=== PATIENT | male | born 1955 | race Caucasian/White ===

== ENCOUNTER 2024-08-30 00:46 | Emergency (ER) | payer OTHER, SELFPAY ==
--- NOTE | ~2024-08-30 | CT_ITS ---
CT of the Abdomen and Pelvis: Indication: Abdominal pain Technique: 2.5 mm axial scans were obtained through the abdomen and pelvis following intravenous adm inistration of 100 cc of Omnipaque 350. Dose reduction technique was used on this scan by utilizing a utomated exposure control and iterative reconstruction technique. The dose-length product (DLP) was 9 57.97 mGy-cm. Findings: Scans through the lung bases demonstrate 9-10 mm right lower lobe pulmonary nodule (axial image 23). There is partially imaged anterior mediastinal versus AP window mass or lymphadenopathy, w ith visualized portion measuring 6.1 x 3.0 cm. Partially imaged probable enlarged precarinal lymph no de measuring at least 1.9 cm in short axis. There are enlarged inferior pericardial lymph nodes, larg est measuring 2.4 cm in diameter (axial images 35-40).. The liver, spleen, gallbladder, and right adrenal gland, and right kidney are within normal limits. 6 mm nonobstructing left renal stone present. 2.9 cm right adrenal nodule is indeterminate. Pancreas p robably unremarkable. No evidence of aortic aneurysm. No lymphadenopathy. There is a large, lobulated, somewhat heterogeneous mass centered in the central mesentery, measuring up to approximately 20.0 x 9.6 x 15.9 cm in overall extent. There is encasement of central mesenteri c vasculature, the lesion extensively abuts the pancreatic head/uncinate process as well as the duode num. There are several much smaller satellite mesenteric masses/implants versus nodes. No bowel obstr uction or bowel wall thickening. There is no evidence to suggest acute appendicitis. Images through the pelvis were performed. Urinary bladder unremarkable. Prostate gland is minimally e nlarged. No ascites. Impression: Dominant 20.0 x 9.6 x 15.9 cm lobulated somewhat heterogeneous mass centered in the central mesentery , extensively abutting the duodenum and pancreatic head. This is compatible with neoplasm, precise et iology unclear. GIST is a potential consideration. Tissue sampling recommended to establish histologi c diagnosis. Several much smaller satellite lesions with dominant mass or compatible with metastatic implants or n odes. 2.9 cm indeterminate right adrenal nodule. Metastasis is a consideration. Partially imaged mediastinal lymphadenopathy, as detailed above, as well as 9-10 mm right lower lobe pulmonary nodule and inferior pericardial lymphadenopathy, all of which are also suspicious for metas tatic disease. Dedicated chest CT recommended to more completely evaluate disease burden in the chest . Reviewed, dictated and finalized at location [facility] [employer] Impression: Dominant 20.0 x 9.6 x 15.9 cm lobulated somewhat heterogeneous mass centered in the central mesentery, extensively abutting the duodenum and pancreatic head. This is compatible with neoplasm, precise etiology unclear. GIST is a potential consideration. Tissue sampling recommended to establish histologic diagnosis. Several much smaller satellite lesions with dominant mass or compatible with me tastatic implants or nodes. 2.9 cm indeterminate right adrenal nodule. Metastasis is a consideration. Partially imaged mediastinal lymphadenopathy, as detailed above, as well as 9-1 0 mm right lower lobe pulmonary nodule and inferior pericardial lymphadenopathy , all of which are also suspicious for metastatic disease. Dedicated chest CT r ecommended to more completely evaluate disease burden in the chest.
[2024-08-30 00:49] VITALS: BP 186/83; PULSE 69; RESP 17; TEMP 36.4; O2SAT 99
--- OUTSIDE RECORDS SUMMARY | 2024-08-30 00:49 | XMS_ITS | CONTINUITY OF CARE DOCUMENT ---
Author Name curtis acevedo Address Unknown Organization [facility] Address [address] [place] [address] Phone [phone] Care Team Providers Care Housekeeper Name Role Phone Chuy Dhillon MD Unavailable AMBER SERRA Unavailable AMBER SERRA Unavailable PROBLEMS Condition Status Date Provider Notes Cardiovascular screening active Chuy lugo MD Diabetes mellitus type II active Chuy acosta MD HTN essential active Chuy Dhillon MD Anxiety active Chuy Dhillon MD Obesity active Chuy Dhillon MD Foot pain active Chuy Dhillon MD Frequent PVC active Chuy Dhillon MD ENCOUNTERS Date Type Provider Location Encounter Diag nosis - In-person encounter Office Visit Chuy Dhillon MD [place] [facility] Cardiovascular screeningDiabetes mellitus type IIHTN essentialAnxietyObesityFoot painFrequent PVC VITAL SIGNS Date Observation Value Provider Body Mass Index (Ratio) 37.79 kg/m2 Barbara Dhillon MD blood pressure, resting Yes Sea Gil blood pressure, cuff size regular Kr jerry Gil blood pressure, diastolic 80 mm[Hg] Jose Gil blood pressure, systolic 150 mm[Hg] Emmanuel Gil oxygen saturation, oximetry 96 % Jaelyn Spicerby pulse rate 81 /min Jaelyn Spicerby respiratory rate E&M 18 /min Jaelyn Spicerby height E&M 71 [in_i] Jaelyn Spicerby weight E&M 271 [lb_av] Jaelyn Jeffery HISTORY OF MEDICATION USE Medication Status Instructions Dates Provider Indications Com ments CALCIUM-MAGNESIU M-ZINC TABLET active take one tablet by mouth once daily 6 Jaelyn Gil CENTRUM SILVER 50+WOMEN ORAL TABLET active once weekly 6 Jaelyn Gil VITAMIN D3 1.25 MG (73033 UT) ORAL TABLET active take one tablet by mouth once weekly 6 Jaelyn Gil CO-Q 10 OMEGA-3 FISH OIL ORAL CAPSULE active take one tablet by mouth once daily 6 Jaelyn Gil JANUVIA 100 MG ORAL TABLET active take one tablet by mouth once daily 6 Jaelyn Gil LISINOPRIL-HYDRO CHLOROTHIAZIDE 20-25 MG ORAL TABLET active take one tablet by mouth once daily 8 Jaelyn Gil #30, 30 days supply, Prescribed by AMBER OGDEN, Filled 09/17/2020 METFORMIN HCL 500 MG ORAL TABLET active take one tablet by mouth twice daily 8 Jaelyn Gil #60, 30 days supply, Prescribed by AMBER OGDEN, Filled 10/04/2020 ESCITALOPRAM OXALATE 20 MG ORAL TABLET active take one tablet by mouth once daily 8 Jaelyn Gil #30, 30 days supply, Prescribed by AMBER OGDEN, Filled 10/04/2020 SOCIAL HISTORY Date Observation Value Provider number of grandchildren Chuy Dhillon MD U marcelle Dhillon MD social history E&M S moking History: Malena rousseau is a former smoker. Chuy Dhillon MD social history reviewed E&M reviewed - no changes required Chuy Dhillon MD cigarette use yes Jaelyn Gil smoking status Former smoker Jaelyn Spicreby INSURANCE PROVIDERS Payer name Policy type / Coverage type [employer] [facility] Medicaid 0 [id number] [place] [employer] Medicare [id number] TREATMENT PLAN Date Name Performer Cardiology Chuy Dhillon MD Cardiology:Per PCP Chuy Dhillon MD Cardiology:Due to HT N, DM, obesity, abnormal EKG we will check an echo BP today: 150/80 Chuy Dhillon MD Cardiology:Will refe r to Dr. Roberts. The patient has palpable pedal pulses and is without discoloration, swelling or pain on exertion. Most of his issue may be related to poor support in his arch, he has very flat feet. Advised that he may consider getting arch supports. We will check an venous US to r/o venous insufficiency. Chuy Dhillon MD Date Name Venous Doppler Bilat eral LE - Reflux Complete Echo HISTORY OF PROCEDURES Procedure Date Procedure Name Provider Procedure Notes S tatus Holter, 24 or 48 Chuy Dhillon MD com pleted EKG Chuy Dhillon MD completed
[2024-08-30 01:18] LABS: Basophils Absolute Auto 0.1 K/mm3 (0.0-0.1); Basophils Percent Auto 0.4 % (0.2-1.2); Eosinophils Absolute Auto 0.1 K/mm3 (0-0.3); Eosinophils Percent Auto 0.9 % (0-4.4); Hematocrit 40.6 % (42.0-52.0); Hemoglobin 13.4 g/dL (14.0-18.0); Immature Granulocyte Absolute 0.08 K/mm3 (0.00-0.031); Immature Granulocyte Percent A 0.5 % (0-0.5); Lymphocytes Absolute Auto 1.51 K/mm3 (0.9-3.2); Lymphocytes Percent Auto 10.3 % (18.3-44.2); Mean Corpuscular Hemoglobin 26.8 pg (26-34); Mean Corpuscular Volume 81.2 fl (80-100); Mean Platelet Volume 9.1 fl (7.4-10.4); Monocytes Absolute Auto 0.9 K/mm3 (0.1-0.6); Monocytes Percent Auto 6.4 % (2.6-8.5); Neutrophils Percent Auto 81.5 % (45.5-73.1); Platelet Count Result 388 k/mm3 (150-375); Red Cell Distribution Width 13.9 % (11.5-14.5); White Blood Count 14.7 K/mm3 (4.5-10.0)
[2024-08-30] MEDS: ONDANSETRON INJ 4 MG/2 ML VIAL IV PUSH ×2 (01:25→03:28)
[2024-08-30 01:42] LABS: Alanine Aminotransferase 18 U/L (6-50); Alkaline Phosphatase 146 U/L (38-126); Anion Gap 12 mmol/L (4-12); Aspartate Amino Transferase 32 U/L (17-59); Bilirubin,Total 0.7 mg/dL (0.2-1.3); Blood Urea Nitrogen 23 mg/dL (9-20); Calcium 10.3 mg/dL (8.4-10.2); Carbon Dioxide 25 mmol/L (22-30); Chloride 100 mmol/L (98-107); Estimated CRCL calculation 77 ml/min; Estimated Glomerular Filt Rate > 60; Glucose 242 mg/dL (65-110); Lipase 376 U/L (23-300); Potassium 3.5 mmol/L (3.4-5.0); Sodium 137 mmol/L (137-145)
[2024-08-30 01:54] LABS: Influenza A QL RT-PCR Negative (Negative); Influenza B QL RT-PCR Negative (Negative); RSV RNA, RT-PCR Negative (Negative); SARS-CoV-2 RNA PCR Negative (Negative)
--- OUTSIDE RECORDS SUMMARY | 2024-08-30 03:04 | XMS_ITS | Data Portability ---
Author Organization [facility] LISA Brenda [facility] Address [address] [place] [address] Assessment Encounter Date Assessment Date Assessment LastModified by Organization Details LastModified Time 04/27/2024 04/27/2024 Again deferred colon cancer screening [email or web address] Not available 04/27/2024 10:57:47 Plan of Treatment Reminders Order Date Submit Date Provider Last Modified By Organization Details Last Modified Time Details Appointments ANY 2024 09:00A M Karina Herrera MD Not available Not available Not available Lab CBC w/ auto diff 2023 024 [facility], [address] [place] [address], [facility] [address], [place], [address], 04/28/2024 13:14:15 urinalysi s, dipstick, reflex micro 2023 024 [facility], [address] [place] [address], [facility] [address], [place], [address], 04/28/2024 13:14:14 albumin/c reatinine , mass ratio, urine 2023 024 [facility], [address] [place] [address], [facility] [address], [place], [address], 04/28/2024 13:14:11 Referral None recorded. Procedures None recorded. Surgeries None recorded. Imaging None recorded. Medication Orders chlorthal idone 25 mg tablet 2024 025 [facility], [address] [place] [address], [id number], 07/15/2024 10:28:09 amlodipin e 10 mg tablet 2024 025 [facility], [address] [place] [address], [id number], 08/02/2024 09:27:40 lisinopri l 20 mg tablet 2024 025 [facility], [address] [place] [address], [id number], 08/19/2024 10:14:59 Farxiga 5 mg tablet 2023 024 [id number], [address] [place] [address], [id number], 05/01/2024 12:55:50 amlodipin e 10 mg tablet 2023 024 [facility], [address] [place] [address], [id number], 08/02/2024 08:49:03 lisinopri l 20 mg tablet 2023 024 [facility], [address] [place] [address], [id number], 04/27/2024 11:47:57 metformin 500 mg tablet 2023 024 [facility], [address] [place] [address], [id number], 06/08/2024 10:01:36 amlodipin e 5 mg tablet 2023 025 [facility], [address] [place] [address], [id number], 07/14/2024 11:49:19 Patient TargetsNo targets recorded. Patient InstructionsNo instructions recorded. Reason for Referral None Reported. Results Created Date Observation Date Name Description Value Unit Range Abnormal Flag Note LastModifiedBy Organization Detail LastModifiedTime 03/01/20 24 03/02/2024 ALBUM IN/CR EATIN INE RATIO ,URIN E creatinine, urine 102.1 mg/dL notest ab. Not Available [facility] ([facility]) [address] [facility], [place], [address], 03/02/2024 08:25:14 03/01/20 24 03/02/2024 ALBUM IN/CR EATIN INE RATIO ,URIN E albumin, urine 214.2 ug/mL notest ab. Not Available [facility] ([facility]) [address] [facility], [place], [address], 03/02/2024 08:25:14 03/01/20 24 03/02/2024 ALBUM IN/CR EATIN INE RATIO ,URIN E alb/creat ratio 210 mg/g_ creat 0-29 above high normal Farideh l: 0 - 29 Moder ately incre ased: 30 - 300 Sever ophelia incre ased: >300 Not Available [facility] ([facility]) [address] [facility], [place], [address], 03/02/2024 08:25:14 03/01/20 24 03/01/2024 HbA1c (hemo globi n A1c), blood HbA1c 7.5 Not Available In-Office Order Internal Use Only DO Not Attach Compendium DO Not Attach Compendium, Do Not Delete/merge, [id number] 03/01/2024 12:31:19 04/27/20 24 04/28/2024 ALBUM IN/CR EATIN INE RATIO ,URIN E creatinine, urine 91.0 mg/dL notest ab. Not Available [facility] ([facility]) [address] [place], [address], 04/28/2024 13:14:11 04/27/20 24 04/28/2024 ALBUM IN/CR EATIN INE RATIO ,URIN E albumin, urine 187.0 ug/mL notest ab. Not Available [facility] ([facility]) [address] [place], [address], 04/28/2024 13:14:11 04/27/20 24 04/28/2024 ALBUM IN/CR EATIN INE RATIO ,URIN E alb/creat ratio 205 mg/g_ creat 0-29 above high normal Farideh l: 0 - 29 Moder ately incre ased: 30 - 300 Sever ophelia incre ased: >300 Not Available [facility] ([facility]) [address], [place], [address], 04/28/2024 13:14:11 04/27/20 24 04/28/2024 MICRO SCOPI C EXAMI NATIO N WBC None seen /hpf 0-5 Not Available [facility] ([facility]) [address] [facility], [place], [address], 04/28/2024 13:14:13 04/27/2004/28/2024 MICRO SCOPI C EXAMI NATIO N RBC 0-2 /hpf 0-2 Not Available [facility] ([facility]) [address] [facility], [place], [address], 04/28/2024 13:14:13 04/27/2004/28/2024 MICRO SCOPI C EXAMI NATIO N epithelial cells (non renal) None seen /hpf 0-10 Not Available [facility] ([facility]) [address] [facility], [place], [address], 04/28/2024 13:14:13 04/27/2004/28/2024 MICRO SCOPI C EXAMI NATIO N casts None seen /lpf nonese en Not Available [facility] ([facility]) [address] [facility], [place], [address], 04/28/2024 13:14:13 04/27/20 24 04/28/2024 MICRO SCOPI C EXAMI NATIO N bacteria None seen nonese en/few Not Available [facility] ([facility]) [address] [facility], [place], [address], 04/28/2024 13:14:13 04/27/2004/28/2024 URINA LYSIS , ROUTI NE W/RFX specific gravity 1.019 1.005- 1.030 Not Available [facility] ([facility]) [address] [facility], [place], [address], 04/28/2024 13:14:13 04/27/2004/28/2024 URINA LYSIS , ROUTI NE W/RFX pH 6.0 5.0-7. 5 Not Available [facility] ([facility]) [address] [facility], [place], [address], 04/28/2024 13:14:13 04/27/2004/28/2024 URINA LYSIS , ROUTI NE W/RFX urine-color YELLOW yellow Not Available [facility] ([facility]) [address] [facility], [place], [address], 04/28/2024 13:14:13 04/27/2004/28/2024 URINA LYSIS , ROUTI NE W/RFX appearance CLEAR clear Not Available [facility] ([facility]) [address] [facility], [place], [address], 04/28/2024 13:14:13 04/27/2004/28/2024 URINA LYSIS , ROUTI NE W/RFX WBC esterase NEGATI VE negati ve Not Available [facility] ([facility]) [address] [facility], [place], [address], 04/28/2024 13:14:13 04/27/2004/28/2024 URINA LYSIS , ROUTI NE W/RFX protein 1+ negati ve/tra ce abnormal Not Available [facility] ([facility]) [address] [facility], [place], [address], 04/28/2024 13:14:13 04/27/2004/28/2024 URINA LYSIS , ROUTI NE W/RFX glucose TRACE negati ve abnormal Not Available [facility] ([facility]) [address] [facility], [place], [address], 04/28/2024 13:14:13 04/27/2004/28/2024 URINA LYSIS , ROUTI NE W/RFX ketones NEGATI VE negati ve Not Available [facility] ([facility]) [address] [facility], [place], [address], 04/28/2024 13:14:13 04/27/2004/28/2024 URINA LYSIS , ROUTI NE W/RFX occult blood NEGATI VE negati ve Not Available [facility] ([facility]) [address] [facility], [place], [address], 04/28/2024 13:14:13 04/27/2004/28/2024 URINA LYSIS , ROUTI NE W/RFX bilirubin NEGATI VE negati ve Not Available [facility] ([facility]) [address] [place], [address], 04/28/2024 13:14:13 04/27/2004/28/2024 URINA LYSIS , ROUTI NE W/RFX urobilinogen ,semi-qn 0.2 mg/dL 0.2-1. 0 Not Available [facility] ([facility]) [address] [place], [address], 04/28/2024 13:14:13 04/27/2004/28/2024 URINA LYSIS , ROUTI NE W/RFX nitrite, urine NEGATI VE negati ve Not Available [facility] ([facility]) [address] [place], [address], 04/28/2024 13:14:13 04/27/2004/28/2024 URINA LYSIS , ROUTI NE W/RFX microscopic examination SEE BELOW: Micro scopi c was indic ated and was perfo rmed. Not Available [facility] ([facility]) [address] [facility], [place], [address], 04/28/2024 13:14:13 04/27/20 24 04/27/2024 CBC WITH DIFFE RENTI AL/PL ATELE T WBC 9.8 x10e3 /uL 3.4-10 .8 Not Available [facility] ([facility]) [address] [facility], [place], [address], 04/28/2024 13:14:15 04/27/20 24 04/27/2024 CBC WITH DIFFE RENTI AL/PL ATELE T RBC 5.08 x10e6 /uL 4.14-5 .80 Not Available [facility] ([facility]) [address] [facility], [place], [address], 04/28/2024 13:14:15 04/27/2004/27/2024 CBC WITH DIFFE RENTI AL/PL ATELE T hemoglobin 13.6 g/dL 13.0-1 7.7 Not Available [facility] ([facility]) [address] [facility], [place], [address], 04/28/2024 13:14:15 04/27/20 24 04/27/2024 CBC WITH DIFFE RENTI AL/PL ATELE T hematocrit 42.6 % 37.5-5 1.0 Not Available [facility] ([facility]) [address] [facility], [place], [address], 04/28/2024 13:14:15 04/27/20 24 04/27/2024 CBC WITH DIFFE RENTI AL/PL ATELE T MCV 84 fL 79-97 Not Available [facility] ([facility]) [address] [facility], [place], [address], 04/28/2024 13:14:15 04/27/20 24 04/27/2024 CBC WITH DIFFE RENTI AL/PL ATELE T MCH 26.8 pg 26.6-3 3.0 Not Available [facility] ([facility]) [address] [facility], [place], [address], 04/28/2024 13:14:15 04/27/20 24 04/27/2024 CBC WITH DIFFE RENTI AL/PL ATELE T MCHC 31.9 g/dL 31.5-3 5.7 Not Available [facility] ([facility]) [address] [facility], [place], [address], 04/28/2024 13:14:15 04/27/20 24 04/27/2024 CBC WITH DIFFE RENTI AL/PL ATELE T RDW 13.1 % 11.6-1 5.4 Not Available [facility] ([facility]) [address] [facility], [place], [address], 04/28/2024 13:14:15 04/27/20 24 04/27/2024 CBC WITH DIFFE RENTI AL/PL ATELE T platelets 385 x10e3 /uL 150-45 0 Not Available [facility] ([facility]) [address] [facility], [place], [address], 04/28/2024 13:14:15 04/27/20 24 04/27/2024 CBC WITH DIFFE RENTI AL/PL ATELE T neutrophils 75 % notest ab. Not Available [facility] ([facility]) [address] [facility], [place], [address], 04/28/2024 13:14:15 04/27/20 24 04/27/2024 CBC WITH DIFFE RENTI AL/PL ATELE T lymphs 11 % notest ab. Not Available [facility] ([facility]) [address] [place], [address], 04/28/2024 13:14:15 04/27/20 24 04/27/2024 CBC WITH DIFFE RENTI AL/PL ATELE T monocytes 11 % notest ab. Not Available [facility] ([facility]) [address] [facility], [place], [address], 04/28/2024 13:14:15 04/27/20 24 04/27/2024 CBC WITH DIFFE RENTI AL/PL ATELE T eos 2 % notest ab. Not Available [facility] ([facility]) [address] [facility], [place], [address], 04/28/2024 13:14:15 04/27/20 24 04/27/2024 CBC WITH DIFFE RENTI AL/PL ATELE T basos 1 % notest ab. Not Available [facility] ([facility]) [address] [facility], [place], [address], 04/28/2024 13:14:15 04/27/20 24 04/27/2024 CBC WITH DIFFE RENTI AL/PL ATELE T neutrophils (absolute) 7.4 x10e3 /uL 1.4-7. 0 above high normal Not Available [facility] ([facility]) [address] [facility], [place], [address], 04/28/2024 13:14:15 04/27/20 24 04/27/2024 CBC WITH DIFFE RENTI AL/PL ATELE T lymphs (absolute) 1.1 x10e3 /uL 0.7-3. 1 Not Available [facility] ([facility]) [address] [facility], [place], [address], 04/28/2024 13:14:15 04/27/20 24 04/27/2024 CBC WITH DIFFE RENTI AL/PL ATELE T monocytes(ab solute) 1.0 x10e3 /uL 0.1-0. 9 above high normal Not Available [facility] ([facility]) [address] [facility], [place], [address], 04/28/2024 13:14:15 04/27/20 24 04/27/2024 CBC WITH DIFFE RENTI AL/PL ATELE T eos (absolute) 0.2 x10e3 /uL 0.0-0. 4 Not Available [facility] ([facility]) [address] [facility], [place], [address], 04/28/2024 13:14:15 04/27/20 24 04/27/2024 CBC WITH DIFFE RENTI AL/PL ATELE T baso (absolute) 0.1 x10e3 /uL 0.0-0. 2 Not Available [facility] ([facility]) [address] [facility], [place], [address], 04/28/2024 13:14:15 04/27/20 24 04/27/2024 CBC WITH DIFFE RENTI AL/PL ATELE T immature granulocytes 0 % notest ab. Not Available [facility] ([facility]) [address] [facility], [place], [address], 04/28/2024 13:14:15 04/27/20 24 04/27/2024 CBC WITH DIFFE RENTI AL/PL ATELE T immature grans (abs) 0.0 x10e3 /uL 0.0-0. 1 Not Available [facility] ([facility]) [address] [facility], [place], [address], 04/28/2024 13:14:15 Result Notes None recorded. Problems Name Problem SNOMED Code Status Onset Date Resolution Date Notes Provider Name and Address Organization Details Recorded Time Bilateral hearing loss 74621706 Active 2017 45% on left ; 65 % hearing on the right Mannie Hope PA-C Attn: Kyle fuller,[address] [facility], [place], [address], [facility] 8 11:03:42 Fatigue 48229602 Active 2017 Manine Hope PA-C Attn: Kyle fuller,[address] [facility], [place], [address], [facility] 8 11:04:10 Testostero ne level below reference range 195228712 Active 2017 Mannie Hope PA-C Attn: Accountnura g,[address] [facility], [place], [address], [place] [facility] 8 09:49:40 Essential hypertensi on 87714676 Active 2017 Mannie Hope PA-C Attn: Kyle g,[address] [facility], [place], [address], [place] [facility] 8 10:36:56 Type 2 diabetes mellitus 63420271 Active 2017 Mannie Hope PA-C Attn: Accountnura g,[address] [facility], [place], [address], [place] [facility] 8 23:39:36 Herpes zoster 6033053 Active 2018 Mannie Hope PA-C Attn: Accountnura fuller,[address] [facility], [place], [address], [place] [facility] 9 16:48:39 Depressive disorder 47646966 Active 2019 Mannie Hope PA-C Attn: Accountnura g,[address] [facility], [place], [address], [place] [facility] 0 09:23:53 Prostate specific antigen outside reference range 012177884 Active 2019 Mannie Hope PA-C Attn: Accountnura g,[address] [facility], [place], [address], [place] [facility] 0 14:15:26 Vitamin D below reference range 837022204 Active 2019 Mannie Hope PA-C Attn: Accountin g,[address] [facility], [place], [address], [place] [facility] 0 14:22:40 Venous stasis 23384226 Active 2020 Mannie Hope PA-C Attn: Accountnura g,[address] [facility], [place], [address], [place] [facility] 1 10:25:22 Screening for malignant neoplasm of colon Active 2020 Mannie Hope PA-C Attn: Accountin g,[address] [facility], [place], [address], [place] [facility] 1 10:19:58 Left side sciatica [id number] 104 Active 2021 Mannie Hope PA-C Attn: Accountin g,[address] [facility], [place], [address], [place] [facility] 2 15:50:42 HIV screening Active 2021 Mannie Hope PA-C Attn: Accountin g,[address] [facility], [place], [address], [place] [facility] 2 12:13:13 Pain of left knee joint 872665848331 107 Active 2021 Mannie Hope PA-C Attn: Accountin g,[address] [facility], [place], [address], [place] [facility] 2 12:12:07 Otitis media 22417887 Active Mannie Hope PA-C Attn: Accountin g,[address] [facility], [place], [address], [place] [facility] 4 10:19:59 Hypertensi ve disorder 92973522 Active Mannie Hope PA-C Attn: Accountin g,[address] [facility], [place], [address], [place] [facility] 6 10:13:13 Obesity 196024645 Active Mannie Hope PA-C Attn: Accountin g,[address] [facility], [place], [address], [place] [facility] 6 10:13:13 Impaired glucose tolerance 3823697 Active Mannie Hope PA-C Attn: Accountin g,[address] [facility], [place], [address], [place] [facility] 6 10:13:13 Hyperlipid emia 81505327 Active Mannie Hope PA-C Attn: Accountin g,[address] [facility], [place], [address], [place] [facility] 6 10:13:13 Screening for malignant neoplasm of prostate Active 2016 Mannie Hope PA-C Attn: Kyle fuller,[address] [facility], [place], [address], [place] [facility] 7 11:19:59 Occult blood detected in feces 58876033 Active 2016 Mannie Hope PA-C Attn: Kyle g,[address] [facility], [place], [address], [place] [facility] 7 12:34:56 Low back pain 253808916 Active 2016 Mannie Hope PA-C Attn: Kyle fuller,[address] [facility], [place], [address], [place] [facility] 7 10:16:07 Problem Notes None recorded. Medical Equipment None Reported. Allergies Allergen ID Allergen Name Allergen Category Reaction Reaction Severity Criticality Documentation Date Start Date Code Code System Note Provider Name and Address Organization Details Recorded Time 740 Product containin g penicilli n (product) medicatio n anaphylax is severe Not available 05/17/2014 55627 8001 SNOMED Not Available Not Available Not Available Medications Name Sig Start Date Stop Date Status Note LastModified by Organization Details LastModified Time metformin hydrochlori de 500 mg tabs 05/31 completed Not Available Not Available Not Available lisinop/hct z tab 20-25mg 05/31 completed Not Available Not Available Not Available cyclobenzap rine 10 mg tablet Take 1 tablet as needed by oral route at bedtime for 30 days. 10/22 completed Not Available Not Available Not Available pioglitazon e 15 mg tablet Take 1 tablet every day by oral route in the morning for 30 days. 05/28 completed Not Available Not Available Not Available metformin 500 mg tablet TAKE TWO TABLETS BY MOUTH TWICE DAILY EVERY MORNING & EVENING WITH FOOD FOR DIABETES 2024 active Not Available Not Available Not Avai lable BD Alcohol Swabs Apply 1 pad twice a day by topical route as directed for 30 days. active Not Available Not Available No t Available ciprofloxac in 750 mg tablet Take 1 tablet every 12 hours by oral route for 10 days. 08/06 completed Not Available Not Available Not Available lisinopril 20 mg-hydrochl orothiazide 12.5 mg tablet TAKE ONE TABLET DAILY IN THE MORNING completed Not Available Not Available Not Available IBU 800 mg tablet Take 1 tablet 3 times a day by oral route with meals for 30 days. 08/01 completed Not Available Not Available Not Available lisinopril 20 mg tablet TAKE ONE TABLET BY MOUTH TWICE DAILY EVERY MORNING & EVENING FOR BLOOD PRESSURE active Not Available Not Available No t Available prednisone 20 mg tablet Take 2 tablets twice a day by oral route for 2 days. 12/24 completed Not Available Not Available Not Available chlorthalid one 25 mg tablet two tabs po q d 2024 active Not Available Not Available Not Avai lable amlodipine 5 mg tablet TAKE ONE TABLET BY MOUTH EVERY DAY FOR BLOOD PRESSURE 07/14 completed Not Available Not Available Not Available sulfamethox azole 800 mg-trimetho prim 160 mg tablet 05/31 completed Not Available Not Available Not Available tramadol 50 mg tablet 07/30 completed Not Available Not Available Not Available acyclovir 800 mg tablet Take 1 tablet 5 times a day by oral route for 10 days. 05/31 completed Not Available Not Available Not Available amlodipine 10 mg tablet TAKE ONE TABLET BY MOUTH EVERY MORNING FOR BLOOD PRESSURE 08/02 completed Not Available Not Available Not Available lidocaine 5 % topical patch APPLY 1 PATCH BY TOPICAL ROUTE ONCE DAILY (MAY WEAR UP TO 12HOURS.) 10/22 completed Not Available Not Available Not Available lisinopril 20 mg-hydrochl orothiazide 25 mg tablet TAKE ONE TABLET BY MOUTH EVERY MORNING FOR BLOOD PRESSURE & FLUID RETENTION 03/01 completed Not Available Not Available Not Available hydrochloro thiazide 25 mg tablet Take 1 tablet every day by oral route in the morning for 30 days. 05/12 completed Not Available Not Available Not Available ergocalcife rol (vitamin D2) 1,250 mcg (50,000 unit) capsule TAKE ONE CAPSULE BY MOUTH EVERY WEEK WITH MEALS 10/22 completed Not Available Not Available Not Available pioglitazon e 30 mg tablet Take 1 tablet every day by oral route in the morning for 30 days. 10/22 completed Not Available Not Available Not Available escitalopra m 10 mg tablet Take 1 tablet every day by oral route at dinner for 30 days. 08/06 completed Not Available Not Available Not Available escitalopra m 20 mg tablet Take 1 tablet every day by oral route at dinner for 30 days. 05/31 completed Not Available Not Available Not Available cyclobenzap rine 5 mg tablet 07/30 completed Not Available Not Available Not Available omega-3 acid ethyl esters 1 gram capsule Take 2 capsules twice a day by oral route after meals for 30 days. 10/22 completed Not Available Not Available Not Available Fish Oil active Not Available Not Avai lable Not Available Januvia 100 mg tablet Take 1 tablet every day by oral route in the morning for 30 days. 10/22 completed Not Available Not Available Not Available omega 3-dha-epa-f dariel oil 1,000 mg (120 mg-180 mg) capsule Take 1 capsule twice a day by oral route with meals for 30 days. 10/04 completed Not Available Not Available Not Available TRUEplus Lancets 28 gauge USE TO CHECK BLOOD SUGAR EVERY MORNING active Not Available Not Available No t Available Farxiga 10 mg tablet Take 1 tablet every day by oral route in the morning for 30 days. 10/22 completed Not Available Not Available Not Available Pennsaid 20 mg/gram/act uation (2 %) topical soln in metered-dos e pump apply TWO pumps TO THE affected AREA TWICE DAILY 2022 completed Not Available Not Available Not Available Farxiga 5 mg tablet one tab po q d 2023 active Not Available Not Available Not Avai lable True Metrix Glucose Test Strip USE TO CHECK BLOOD SUGAR EVERY MORNING active Not Available Not Available No t Available True Metrix Glucose Meter USE TO CHECK BLOOD SUGAR EVERY MORNING active Not Available Not Available No t Available Pennsaid 2 % topical solution in packet completed Not Available Not Available Not Available Vitals Date Recorded Body height Body mass index (BMI) Body weight Oxygen saturation Oxygen saturation in Arterial blood by Pulse oximetry Heart rate Systolic blood pressure Diastolic blood pressure Provider Name and Address Organization Details Last Updated DateTime 4 180.34 cm 31.8 kg/m2 895351. 06 g 97 % 97 % 75 /min 130 mm[Hg] 80 mm[Hg] Nikia Morales [place] [facility] 4 16:55:39 Date Recorded Body height Body mass index (BMI) Body weight Heart rate Oxygen saturation Oxygen saturation in Arterial blood by Pulse oximetry Systolic blood pressure Diastolic blood pressure Systolic blood pressure Diastolic blood pressure Provider Name and Address Organization Details Last Updated DateTime 4 180.34 cm 32.2 kg/m2 611026. 84 g 78 /min 97 % 97 % 182 mm[Hg] 96 mm[Hg] 176 mm[Hg] 97 mm[Hg] Nikia Morales [place] [facility] 4 17:01:43 Date Recorded Body height Body mass index (BMI) Body weight Oxygen saturation Oxygen saturation in Arterial blood by Pulse oximetry Heart rate Systolic blood pressure Diastolic blood pressure Provider Name and Address Organization Details Last Updated DateTime 4 180.34 cm 32.2 kg/m2 060386. 84 g 96 % 96 % 80 /min 168 mm[Hg] 91 mm[Hg] Nikia Morales [place] [facility] 4 10:18:40 Date Recorded Body height Body mass index (BMI) Body weight Oxygen saturation Oxygen saturation in Arterial blood by Pulse oximetry Heart rate Systolic blood pressure Diastolic blood pressure Provider Name and Address Organization Details Last Updated DateTime 5 180.34 cm 32.1 kg/m2 340647. 25 g 98 % 98 % 77 /min 162 mm[Hg] 110 mm[Hg] Nikia Morales [place] - [facility] 5 10:12:27 Date Recorded Body height Systolic blood pressure Diastolic blood pressure Provider Name and Address Organization Details Last Updated DateTime 07/28/2024 180.34 cm 166 mm[Hg] 90 mm[Hg] Nikia Morales [place] [facility] 07/28/2024 13:48:04 Social History Question Answer Notes LastModified by Organizat ion Details LastModified Time Tobacco Smoking Status Former Smoker When was a teenager [place], [place] null, [place] - [facility] 12/28/2017 10:41:37 Do You Have An Advance Directive? No Information not available 10/16/2014 What Is Your Level Of Alcohol Consumption? None Information not available 05/17/2014 Are You Blind Or Do You Have Difficulty Seeing? No Information not available 10/04/2020 What Is Your Level Of Caffeine Consumption? Moderate Information not available 10/16/2014 How Much Tobacco Do You Chew? None Information not available 10/16/2014 In The 14 Days Before Symptom Onset, Have You Had Close Contact With A Laboratory-confi rmed COVID-19 While That Case Was Ill? No Information not available 01/03/2021 In The 14 Days Before Symptom Onset, Have You Had Close Contact With A Person Who Is Under Investigation For COVID-19 While That Person Was Ill? No Information not available 01/03/2021 Have You Been To An Area Known To Be High Risk For COVID-19? No Information not available 01/03/2021 Are You Deaf Or Do You Have Serious Difficulty Hearing? Yes Loss Of Hearing In Both Ears Information not available 10/04/2020 What Type Of Diet Are You Following? 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 No Information not available 10/16/2014 Hard Of Hearing Or Deaf In One Or Both Ears? No Information not available 10/16/2014 Legally Blind In One Or Both Eyes? No Information not available 10/16/2014 Marital Status Domestic Partner Information not available 10/16/2014 Do You Have A Medical Power Of State Epidemiologist? No Daughter Information not available 05/17/2014 What Was The Date Of Your Most Recent Tobacco Screening? 07/14/2024 Information not available 07/14/2024 Do You Have An Out Of Hospital DNR? No Information not available 05/17/2014 Performs Monthly Self-breast Exam? No Information not available 10/16/2014 What Is Your Relationship Status? Single Information not available 10/04/2020 Do You Use Your Seat Belt Or Car Seat Routinely? Yes Information not available 10/04/2020 Seat Belts Used Routinely Yes Information not available 10/16/2014 Smoke Alarm In Home Yes Information not available 10/16/2014 Do You Have Smoke And Carbon Monoxide Detectors In Your Home? Yes Information not available 10/04/2020 Are You Passively Exposed To Smoke? Yes Off And On Information not available 10/04/2020 How Much Tobacco Do You Smoke? No Information not available 05/17/2014 General Stress Level Medium Information not available 10/16/2014 Do You Feel Stressed (tense, Restless, Nervous, Or Anxious, Or Unable To Sleep At Night)? [id number] Information not available 10/04/2020 Do You Use Any Illicit Or Recreational Drugs? No adavisma Information not available 02/26/2023 Do You Use Sunscreen Routinely? No Information not available 10/16/2014 On What Date Was Tobacco Cessation Counseling Provided? 07/14/2024 Information not available 07/14/2024 Sex: Male Functional Status Question Answer Note LastModified by Organization D etails LastModified Time Are you able to care for yourself? Yes Information n ot available 10/04/2020 What is your exercise level? None Information not available 10/16/2014 Mental Status None recorded. Family History Relationship Description Onset Age of this Age Resolved Age Notes LastModified by Organization Details LastModified Time Mother Malignant neoplasm of brain 68 Not available 2014 11:04:56 Brother Hypertensive disorder Not available 2014 11:04:56 Medical History Condition Response Coronary Artery Disease N Other N Atrial Fibrillation N High Blood Pressure N Depression N COPD N Blood Clots N Anxiety Disorder N Muscle, Joint, or Bone Problems N Acid Reflux (GERD) N Cancer N Stroke N High Cholesterol N Liver Disease N Headaches N Kidney or Bladder Problems Y Thyroid Problems N GI Problems N Skin Problems N Anemia N Heart Attack ([place]) N Diabetes N Seizures/Epilepsy N Asthma N Allergies N Hepatitis N Osteoporosis N Heart Failure N Past Encounters Encounter ID Performer Location Encounter Start Date Encounter Closed Date Diagnosis/Indication Diagnosis SNOMED-CT Code Diagnosis ICD10 Code Diagnosis Note [id number] PARIS Crane (Adult Med) [address] [place] [address] [id number] 05/17/2014 09:19:21 05/17/2014 10:30:13 Otitis media 13954596 Hypertensive disorder 84463225 Obesity 034002875 Impaired g lucose tolerance 8377392 [id number] PARIS Crane (Adult Med) [address] [place] [address] 52006-730 0 10/16/2014 10:42:37 10/16/2014 11:31:49 Hypertensive disorder 87608276 Impaired g lucose tolerance 4653975 Obesity 436101809 [id number] ROSANA Spencer (Adult Med) [address] [place] [address] 73910-746 0 04/17/2015 09:46:20 04/17/2015 10:37:09 Hypertensive disorder 28851009 I10 Impaired g lucose tolerance 5861881 R73.02 Obesity 735284167 E66.9 [id number] ROSANA Spencer (Adult Med) [address] [place] [address] 36288-736 0 10/17/2015 09:35:41 10/17/2015 10:50:40 Hypertensive disorder 44626426 I10 Impaired g lucose tolerance 2115300 R73.02 Obesity 913464329 E66.9 [id number] ROSANA Spencer (Adult Med) [address] [place] [address] 59498-645 0 01/18/2016 09:31:13 01/18/2016 10:29:26 Hypertensive disorder 63861271 I10 Impaired g lucose tolerance 7663380 R73.02 Obesity 829010045 E66.9 Screening for malignant neoplasm of prostate 863938197 Z12.5 Hyperlipidemia 32563670 E78.5 [id number] ROSANA Spencer (Adult Med) [address] [place] [address] [id number] 0 03/19/2016 09:31:35 03/20/2016 10:31:54 Hyperlipidemia 55522634 E78.5 Hypertensive disorder 38 490305 I10 Impaired g lucose tolerance 9241313 R73.02 Obesity 351386920 E66.9 [id number] ROSANA Spencer (Adult Med) [address] [place] [address] [id number] 0 05/12/2016 09:34:20 05/12/2016 10:20:17 Hypertensive disorder 80332845 I10 Obesity 473953392 E66.9 Hyperlipidemia 70893974 E78.5 Impaired g lucose tolerance 4541526 R73.02 [id number] ROSANA Spencer (Adult Med) [address] [place] [address] 00499-209 0 08/26/2016 10:20:25 08/26/2016 11:26:48 Impaired glucose tolerance 0424180 R73.02 Hyperlipidemia 74861335 E78.5 Hypertensive disorder 38 719583 I10 Obesity 575236593 E66.9 Screening for malignant neoplasm of prostate 265335092 Z12.5 [id number] ROSANA Spencer (Adult Med) [address] [place] [address] [id number] 0 10/21/2016 09:39:28 10/21/2016 17:14:10 Hypertensive disorder 69466448 I10 Obesity 300203322 E66.9 Hyperlipidemia 60636258 E78.5 Impaired g lucose tolerance 5546197 R73.02 [id number] ROSANA Spencer (Adult Med) [address] [place] [address] 36077-918 0 12/31/2016 09:20:09 01/01/2017 11:47:00 Obesity 275222293 E66.9 Impaired g lucose tolerance 5401608 R73.02 Hypertensive disorder 38 940293 I10 Low back pain 763050401 M54.5 [id number] ROSANA Spencer (Adult Med) [address] [place] [address] 65803-073 0 03/03/2017 10:41:27 03/03/2017 11:45:39 Hypertensive disorder 32150478 I10 Impaired g lucose tolerance 6367077 R73.02 Hyperlipidemia 38252192 E78.5 Obesity 837632670 E66.9 Low back pain 073178537 M54.5 [id number] ROSANA Spencer (Adult Med) [address] [place] [address] 83054-299 0 05/05/2017 10:17:19 05/05/2017 11:21:24 Hypertensive disorder 55499956 I10 Hyperlipidemia 31073657 E78.5 Obesity 585283691 E66.9 Low back pain 359677522 M54.5 Impaired g lucose tolerance 7759415 R73.02 [id number] ROSANA Spencer (Adult Med) [address] [place] [address] 16258-857 0 08/05/2017 10:28:50 08/05/2017 11:51:25 Hyperlipidemia 63469626 E78.5 Low back pain 885251636 M54.5 Obesity 730961963 E66.9 Impaired g lucose tolerance 0183649 R73.02 Hypertensive disorder 38 707471 I10 Screening for malignant neoplasm of prostate 401072817 Z12.5 [id number] ROSANA Spencer (Adult Med) [address] [place] [address] 81314-511 0 11/02/2017 11:10:39 11/02/2017 14:44:51 Low back pain 309841709 M54.5 Hypertensive disorder 38 061199 I10 Obesity 270385472 E66.9 Hyperlipidemia 27759421 E78.5 Impaired g lucose tolerance 8317578 R73.02 [id number] ROSANA Spencer (Adult Med) [address] [place] [address] 75330-293 0 12/28/2017 10:10:51 12/28/2017 11:08:53 Hypertensive disorder 80125889 I10 Impaired g lucose tolerance 9455071 R73.02 Fatigue 28797193 R53.83 [id number] ROSANA Spencer (Adult Med) [address] [place] [address] 69232-233 0 02/09/2018 10:35:34 02/09/2018 11:32:18 Screening for malignant neoplasm of prostate 662966411 Z12.5 [id number] ROSANA Spencer (Adult Med) [address] [place] [address] 64863-814 0 04/12/2018 09:38:09 04/12/2018 11:04:24 Hypertensive disorder 91290074 I10 Low back pain 447253698 M54.5 Hyperlipidemia 42560433 E78.5 Obesity 814328617 E66.9 Essential hypertension 50408557 I10 [id number] ROSANA Spencer (Adult Med) [address] [place] [address] 45245-815 0 06/14/2018 09:27:11 06/14/2018 10:40:20 Impaired glucose tolerance 2362291 R73.02 Hyperlipidemia 48621892 E78.5 Obesity 849862226 E66.9 Hypertensive disorder 38 379646 I10 Low back pain 203648216 M54.5 Essential hypertension 83917088 I10 [id number] ROSANA Spencer (Adult Med) [address] [place] [address] [id number] 0 08/17/2018 09:21:13 08/18/2018 11:52:24 Type 2 diabetes mellitus 82641560 E11.9 Essential hypertension 24635233 I10 Low back pain 612522414 M54.5 Obesity 902091234 E66.9 Hyperlipidemia 15539227 E78.5 [id number] ROSANA Spencer (Adult Med) [address] [place] [address] 31820-886 0 10/15/2018 09:24:58 10/15/2018 10:22:37 Type 2 diabetes mellitus 76168336 E11.9 Essential hypertension 96967117 I10 Hypertensive disorder 38 951677 I10 Obesity 372397163 E66.9 Hyperlipidemia 88342863 E78.5 Low back pain 171854741 M54.5 [id number] ROSANA Spencer (Adult Med) [address] [place] [address] [id number] 0 12/15/2018 10:15:47 12/15/2018 11:47:56 Type 2 diabetes mellitus 43776289 E11.9 Essential hypertension 80800811 I10 [id number] ROSANA Spencer (Adult Med) [address] [place] [address] [id number] 0 01/27/2019 16:15:19 01/28/2019 08:52:22 Herpes zoster 3201696 B02.9 Type 2 laith betes mellitus 26427081 E11.9 Essential hypertension 09205415 I10 Low back pain 597085209 M54.5 Obesity 258373570 E66.9 Hyperlipidemia 56437088 E78.5 [id number] ROSANA Spencer (Adult Med) [address] [place] [address] 96822-040 0 04/19/2019 10:03:53 04/19/2019 11:08:33 Type 2 diabetes mellitus 99449540 E11.9 Essential hypertension 46300548 I10 Obesity 045266212 E66.9 Hyperlipidemia 27382047 E78.5 Herpes zoster 9455708 B0 2.9 Low back pain 335383072 M54.5 [id number] ROSANA Spencer (Adult Med) [address] [place] [address] [id number] 0 06/14/2019 09:46:26 06/14/2019 10:45:36 Obesity 527055792 E66.9 Type 2 laith betes mellitus 77613183 E11.9 Hyperlipidemia 06518722 E78.5 Screening for malignant neoplasm of prostate 197438849 Z12.5 Essential hypertension 78591790 I10 Low back pain 954225829 M54.5 [id number] ROSANA Spenecr (Adult Med) [address] [place] [address] [id number] 0 08/16/2019 10:17:32 08/16/2019 11:23:44 Type 2 diabetes mellitus 04983507 E11.9 Essential hypertension 66242621 I10 Hyperlipidemia 59978958 E78.5 Hypertensive disorder 38 243345 I10 Low back pain 892051066 M54.5 [id number] ROSANA Spencer (Adult Med) [address] [place] [address] 82351-514 0 10/17/2019 10:16:27 10/20/2019 12:58:25 Essential hypertension 16415355 I10 Hyperlipidemia 51049788 E78.5 Low back pain 090897567 M54.5 Type 2 laith betes mellitus 78307305 E11.9 [id number] ROSANA Spencer (Adult Med) [address] [place] [address] 49128-886 0 12/06/2019 08:19:07 12/06/2019 11:50:24 Type 2 diabetes mellitus 68065621 E11.9 [id number] ROSANA Spencer (Adult Med) [address] [place] [address] 39056-773 0 02/06/2020 08:06:53 02/06/2020 12:56:01 Essential hypertension 47102894 I10 Type 2 laith betes mellitus 07454548 E11.9 Hyperlipidemia 51929292 E78.5 Low back pain 945910200 M54.5 Obesity 138059710 E66.9 [id number] ROSANA Spencer (Adult Med) [address] [place] [address] 74214-774 0 04/05/2020 08:01:42 04/05/2020 11:38:04 Essential hypertension 06278840 I10 Hyperlipidemia 53437954 E78.5 Low back pain 640232972 M54.5 Obesity 764560162 E66.9 Type 2 laith betes mellitus 99326728 E11.9 Depressive disorder 3548 9007 F32.9 situationa l Hypertensive disorder 38 574515 I10 [id number] ROSANA Spencer (Adult Med) [address] [place] [address] [id number] 0 06/05/2020 08:19:07 06/05/2020 12:32:48 Essential hypertension 46544058 I10 Depressive disorder 3548 9007 F32.9 situationa l Hyperlipidemia 44866514 E78.5 Low back pain 930767661 M54.5 Obesity 663796091 E66.9 Type 2 laith betes mellitus 17923622 E11.9 Screening for malignant neoplasm of prostate 863961459 Z12.5 [id number] ROSANA Spencer (Adult Med) [address] [place] [address] 79302-296 0 08/06/2020 09:13:55 08/06/2020 11:07:41 Vitamin D below reference range 223574570 E55.9 Essential hypertension 53628359 I10 Hyperlipidemia 26206375 E78.5 Hypertensive disorder 38 524308 I10 Low back pain 815172583 M54.5 Type 2 laith betes mellitus 45510276 E11.9 Depressive disorder 3548 9007 F32.9 situationa l Prostate s pecific antigen outside reference range 668348774 R97.8 [id number] ROSANA Spencer (Adult Med) [address] [place] [address] 46746-554 0 10/04/2020 09:50:07 10/04/2020 10:38:27 Vitamin D below reference range 911512904 E55.9 Hyperlipidemia 07220142 E78.5 Essential hypertension 53317662 I10 Type 2 laith betes mellitus 85195081 E11.9 Prostate s pecific antigen outside reference range 047194844 R97.8 Venous stasis 95145299 I 87.8 Depressive disorder 3548 9007 F32.9 situationa l [id number] ROSANA Spencer (Adult Med) [address] [place] [address] 61945-793 0 11/06/2020 12:15:14 11/07/2020 13:48:23 Type 2 diabetes mellitus 84656129 E11.9 Vitamin D below reference range 949772449 E55.9 Depressive disorder 3548 9007 F32.9 situationa l Essential hypertension 46892099 I10 Hyperlipidemia 69401848 E78.5 Low back pain 561629049 M54.5 [id number] ROSANA Spencer (Adult Med) [address] [place] [address] 95084-073 0 01/03/2021 09:59:40 01/07/2021 13:09:54 Type 2 diabetes mellitus 21421994 E11.9 [id number] ROSANA Spencer (Adult Med) [address] [place] [address] 82251-100 0 02/07/2021 09:31:41 02/07/2021 11:43:37 Type 2 diabetes mellitus 24160476 E11.9 Screening for malignant neoplasm of colon 102066904 Z12.11 Vitamin D below reference range 266867124 E55.9 Depressive disorder 3548 9007 F32.9 situationa l Essential hypertension 30879039 I10 Hyperlipidemia 60426769 E78.5 Hypertensive disorder 38 636545 I10 Low back pain 919980233 M54.5 Obesity 949588023 E66.9 Venous stasis 66816067 I 87.8 [id number] ROSANA Spencer (Adult Med) [address] [place] [address] 86096-515 0 05/31/2021 12:30:48 05/31/2021 17:23:54 Hyperlipidemia 49719845 E78.5 Screening for malignant neoplasm of prostate 995899104 Z12.5 Essential hypertension 03437713 I10 Depressive disorder 3548 9007 F32.9 situationa l Low back pain 944137368 M54.50 Obesity 008244842 E66.9 Type 2 laith betes mellitus 43187381 E11.9 Vitamin D below reference range 188948626 E55.9 Testostero ne level below reference range 718471420 R79.89 Bilateral hearing loss 74612064 H91.93 [id number] ROSANA Spencer (Adult Med) [address] [place] [address] 90941-210 0 09/17/2021 15:35:48 09/17/2021 16:18:18 Essential hypertension 27890622 I10 Screening for malignant neoplasm of colon 761896497 Z12.11 Type 2 laith betes mellitus 80935041 E11.9 Vitamin D below reference range 516809471 E55.9 Hyperlipidemia 67343081 E78.5 Low back pain 292870532 M54.50 Obesity 372965096 E66.9 Venous stasis 58311207 I 87.8 [id number] ROSANA Spencer (Adult Med) [address] [place] [address] 87147-435 0 10/18/2021 15:37:51 10/21/2021 13:23:41 Type 2 diabetes mellitus 78442747 E11.9 Left side sciatica 73979 37507 88891 M54.32 Bilateral hearing loss 62899093 H91.93 Vitamin D below reference range 502378413 E55.9 Essential hypertension 81938938 I10 Hyperlipidemia 93805360 E78.5 Low back pain 702572024 M54.50 [id number] ROSANA Spencer (Adult Med) [address] [place] [address] 28594-333 0 11/18/2021 11:51:54 11/19/2021 09:22:14 Left side sciatica 3848675377 52723 M54.32 HIV screening 143999107 Z11.4 [id number] ROSANA Spencer (Adult Med) [address] [place] [address] 81092-509 0 12/24/2021 09:49:12 12/25/2021 11:38:46 Vitamin D below reference range 383830969 E55.9 Essential hypertension 44387177 I10 Depressive disorder 3548 9007 F32.9 situationa l Hyperlipidemia 30196031 E78.5 Obesity 474944572 E66.9 Type 2 laith betes mellitus 58651722 E11.9 [id number] ROSANA Spencer (Adult Med) [address] [place] [address] 11638-949 0 02/24/2022 09:49:39 02/25/2022 09:05:10 Vitamin D below reference range 302642925 E55.9 Essential hypertension 84593989 I10 Hyperlipidemia 77217392 E78.5 Hypertensive disorder 38 522370 I10 Low back pain 834473882 M54.50 Type 2 laith betes mellitus 34174933 E11.9 Screening for malignant neoplasm of prostate 827492411 Z12.5 Obesity 979956656 E66.9 [id number] ROSANA Spencer (Adult Med) [address] [place] [address] [id number] 0 03/27/2022 11:48:50 03/28/2022 11:33:51 Type 2 diabetes mellitus 72726755 E11.9 Renewal of prescription 578836305 Z76.0 Low back pain 655766774 M54.50 Pain of le ft knee joint 6849114873 57404 M25.562 Essential hypertension 31220210 I10 Hyperlipidemia 22248552 E78.5 [id number] MD Bianca Morris (Adult Med) [address] [place] [address] 92672-223 0 05/02/2022 11:50:08 05/05/2022 13:20:21 Vitamin D below reference range 164703056 E55.9 Will refill med. Hyperlipidemia 03766946 E78.5 Low animal fat diet, Degenerati ve joint disease involving multiple joints 235463112 M15.9 Stable, on vitamin D. Low back pain 200340507 M54.50 Stable.. Will refill med. Type 2 laith betes mellitus 65465966 E11.65 diabetic diet, exercise and keep the weight down. will refill med. Essential hypertension 56290395 I10 As 05-02-2022 . blood pressure is 128/70, to continue low salt diet, avoid NSAID or OTC decongesta nt if possible., will refill med. [id number] David Abarca MD [facility] (Adult Med) [address] [place] [address] 14430-277 0 08/26/2022 15:19:15 08/28/2022 11:58:20 Bilateral hearing loss 25626909 H91.93 Stable. Vitamin D below reference range 197845932 E55.9 Will refill med. Essential hypertension 18428487 I10 As 05-02-2022 . blood pressure is 128/70, to continue low salt diet, avoid NSAID or OTC decongesta nt if possible., will refill med.. Today BP is 126/70 as 08-26-22. will continue med. Hyperlipidemia 72579767 E78.5 Low animal fat diet, Low back pain 038987136 M54.50 Stable.. Will refill med. Obesity 808440227 E66.9 BMIO is 35.9. as 08-26-22. diet, exercise and keep the weight dowen. Type 2 laith betes mellitus 54516464 E11.65 diabetic diet, exercise and keep the weight down. will refill med. Pain of le ft knee joint 4007577942 46229 M25.562 Will refill med. Degenerati ve joint disease involving multiple joints 415053015 M15.9 Stable, on vitamin D. [id number] David Abarca MD [facility] (Adult Med) [address] [place] [address] 35878-604 0 11/26/2022 09:44:23 11/27/2022 15:00:36 Obesity 165950896 E66.9 BMIO is 35.9. as 08-26-22. diet, exercise and keep the weight down. As 11-26-22. BMI has dropped down to 34.8, weight dropped from 257.12 pounds to today 249.8 pounds, lost about 8 pounds. Type 2 laith betes mellitus 52985131 E11.65 diabetic diet, exercise and keep the weight down. will refill med. Hearing disorder 4957744 05 H91.93 Has hearing aids at home. Statin declined 04195490 0 Z53.20 Statin mad\e him muscle aching, he declined today 11-26-22. Colon canc er screening declined 3999779578 9109 Z53.20 He declined today . [id number] David Abarca MD [facility] (Adult Med) [address] [place] [address] 0 02/26/2023 09:46:38 02/28/2023 09:27:04 Essential hypertension 15352053 I10 As 05-02-2022 . blood pressure is 128/70, to continue low salt diet, avoid NSAID or OTC decongesta nt if possible., will refill med.. Today BP is 126/70 as 08-26-22. will continue med. As BP is 122/78. Hyperlipidemia 98011124 E78.5 Low animal fat diet, Obesity 833033213 E66.9 BMIO is 35.9. as 08-26-22. diet, exercise and keep the weight down. As 11-26-22. BMI has dropped down to 34.8, weight dropped from 257.12 pounds to today 249.8 pounds, lost about 8 pounds. Lost 3-4 lb since last visit, and A1 down to 8.1%, Type 2 laith betes mellitus 96290107 E11.65 diabetic diet, exercise and keep the weight down. will refill med. Vitamin D below reference range 400672452 E55.9 Will refill med. Degenerati ve joint disease involving multiple joints 759633621 M15.9 Stable, on vitamin D. [id number] David Abarca MD [facility] (Adult Med) [address] [place] [address] [id number] 0 05/28/2023 09:53:58 05/31/2023 10:50:35 Type 2 diabetes mellitus 48518353 E11.65 diabetic diet, exercise and keep the weight down. will refill med. Hyperlipid emia due to type 2 diabetes mellitus 3747275204 39257 E78.5 Low animal fat diet. Essential hypertension 81939923 I10 As 05-02-2022 . blood pressure is 128/70, to continue low salt diet, avoid NSAID or OTC decongesta nt if possible., will refill med.. Today BP is 126/70 as 08-26-22. will continue med. As 02-26-23 BP is 122/78. As 05-28-23, BP by Dr Abarca, reading is 132 /68. Hyperlipidemia 99371046 E78.5 Low animal fat diet, Statin declined 61055084 0 Z53.20 Statin mad\e him muscle aching, he declined today 11-26-22. Colon canc er screening declined 9253202543 9109 Z53.20 He declined today . [id number] David Abarca MD [facility] (Adult Med) [address] [place] [address] 94239-596 0 08/27/2023 10:15:12 08/27/2023 11:01:51 Type 2 diabetes mellitus 14391810 E11.65 diabetic diet, exercise and keep the weight down. will refill med. Essential hypertension 29236221 I10 As 05-02-2022 . blood pressure is 128/70, to continue low salt diet, avoid NSAID or OTC decongesta nt if possible., will refill med.. Today BP is 126/70 as 08-26-22. will continue med. As 02-26-23 BP is 122/78. As 05-28-23, BP by Dr Abarca, reading is 132 /68. BP today , 08-27-23, by is 130 /68. med refills. Vitamin D below reference range 221741380 E55.9 Will refill med. Hyperlipidemia 89680330 E78.5 Low animal fat diet, Statin caused him muscle cramping. [id number] MD Bianca Thorne (Adult Med) [address] [place] [address] [phone] 0 10/23/2023 09:08:05 10/27/2023 14:46:14 Overweight 228133624 E66.3 Type 2 laith betes mellitus 80353619 E11.9 Hemoglobin A1C today is eight. Patient understand s would like it closer to seven. Wants to work more on diet and exercise. Has not been able to because glucose monitor was broke. Will get him a new monitor. Encouraged him to see eye doctor since it has been a year. Abdominal pain 67970686 R10.9 Abdominal pain and swelling which has improved since he has stopped medication . It is not clear to me the relationsh ip with the medication . Mild to moderate tenderness on exam. No mass palpated. Will get blood work. If blood work is normal and pain does not resolve will proceed with imaging. Essential hypertension 25365209 I10 Will remain off the blood pressure medication . Will check chem panel, CBC, and urine for protein. Give a blood pressure cuff to take home and check blood pressures. If systolic blood pressure is near 200 or diastolic is near 100 or if has severe headache, chest pain or shortness of breath seek immediate medical attention. Will talk to pharmacy to try to figure out what they said was the change in his blood pressure medication . According to the last office visit note I cannot determine what the change was, but the patient was told by the pharmacy that there was a change. Will return in two weeks to repeat blood pressure and go over his home readings. Will have discussed his medication with the pharmacy and can determine a new course of action. [id number] MD Bianca Thorne (Adult Med) [address] [place] [address] 11/11/2023 11:49:02 11/12/2023 13:25:24 Overweight [id number] E66.3 Essential hypertension [id number] I10 Blood pressure elevated today off medication . Will put him back on MELINA inhibitor due to its renal protection but will keep him off diuretic. He will continue to monitor home blood pressure readings. Follow up in one month. Microalbuminuria [id number] R80.9 Avoid ibuprofen. Referral to Nephrology . Type 2 laith betes mellitus 49772961 E11.9 Increase Metformin to two tabs in am one tab in pm. Patient is not on statin which we will discuss at follow up visit. Laboratory test result abnormal 042220036 R89.9 Initial white count was elevated and hemoglobin was normal, repeated CBC and white count was normal and Hemoglobin was slightly decreased. Will repeat CBC at follow up. Not terribly concerned about slight anemia on repeat CBC. This may be dilutional , but I did discuss with patient that it is still important to screen for colon cancer. Discussed the options for screening. Patient deferred that at this time. [id number] MD Bianca Thorne (Adult Med) [address] [place] [phone] 12/14/2023 16:41:42 12/29/2023 14:31:01 Body mass index 30+ - obesity [id number] Z68.33 Essential hypertension 39990714 I10 Blood pressure improving. Will increase the dose of the MELINA inhibitor to 20 mg BID. Encouraged him to check blood pressures at home and record. Will follow up in two months. [id number] MD Bianca Thorne (Adult Med) [address] [place] [phone] 03/01/2024 11:25:08 03/02/2024 12:27:23 Body mass index 30+ - obesity [id number] Z68.33 Will try to exercise regularly and eat healthy diet. Type 2 laith betes mellitus 58801659 E11.9 Recent Hemoglobin A1C was 7.5 which is not bad but I told him I would like it closer to 7.0. Discussed dietary recommenda tions. He is currently drinking a large size bottle of cranberry juice weekly. I advised him to get the sugar free. Essential hypertension 59292979 I10 Blood pressure elevated on last two visits. Patient feels very good and is hesitant to add a medication . He has a cuff at home so he will check it daily and bring results to follow up visit. If it is elevated at home we will add a medication , but we will avoid a diuretic since he had a bad reaction to that. Had recent blood work and urine. Asked him to watch salt and try to exercise regularly. Abnormal urine [id number] R82.90 Had +1 protein in urine. Will check an albumin/cr eatinine ration. [id number] MD Bianca Thorne (Adult Med) [address] [place] [phone] 03/30/2024 16:28:23 04/01/2024 10:02:39 Essential hypertension 44323226 I10 Blood pressure consistent ly elevated at home and elevated here with our automatic cuff. I am going to add a calcium channel igor to his MELINA inhibitor to see if we can get his blood pressure better controlled . Discussed possible side effect of pedal edema. He will follow up in two weeks to check his blood pressure and will continue to monitor it at home. Encouraged him to continue his exercise program and not be discourage d. Type 2 laith sylwia mellitus 56091715 E11.9 He was unable to get Farxiga at a reasonable cost at this time. We discussed possible starting Actos but I do not want to start two new medication s at once. At this time he will remain on the Metformin and we will re evaluate once we get his blood pressure better controlled . Albuminuria [id number] R8 0.9 Will aggressive ly work on getting his diabetes and blood pressure under better control to see if we can decrease the albumin in his urine. Will continue to monitor. [id number] [facility] [address] [place] [address] 04/13/2024 16:50:08 04/19/2024 09:42:11 Essential hypertension 74860114 I10 Increase Amlodipine to 10 mg daily. Continue Lisinopril . Follow up for blood pressure check in two weeks. If blood pressure still elevated will add low dose diuretic. Continue home blood pressure monitoring . Follow up appointjennifer t in three months. Type 2 laith sylwia mellitus 13980460 E11.9 Taking Metformin BID. Last A1C was slightly elevated and had albuminuri a. Not sure what Farxiga would cost with his insurance. Concerned about having to drink a lot of water. Discussed the renal protection of the medication . We will see if it is covered by his insurance. He will see if he can drink a little more water. If he has any urinary symptoms he will let me know. His last LDL was less than 70. He is currently taking Fish Oil. He will benefit more from a statin. We will discuss this further at a future visit once we get his blood pressure controlled . Will find out when he last saw ophthalmol ogist at follow up. Albuminuria 900312541 R8 0.9 Will aggressive ly work on getting his diabetes and blood pressure under better control to see if we can decrease the albumin in his urine. Will try to add Farxiga. Will follow up in three months for a regular appointmen t and will repeat albumin in urine. Family his tory of cancer of colon [id number] Z80.0 Patient has mild normocytic anemia and family history of anemia. We have discussed proceeding with colonoscop y to check for colon cancer. Patient did not want to proceed with testing. [id number] MD Bianca Thorne (Adult Med) [address] [place] [phone] 04/27/2024 10:04:23 04/29/2024 16:27:54 Essential hypertension 01358119 I10 Never did get the prescripti on for the increased dose of Amlodipine . Has been on the same dose of blood pressure medication and his blood pressure readings are unchanged. Will send out the increased dose of Amlodipine to 10 mg daily. Continue Lisinopril . Blood pressure checks at home continue to be exactly like readings in the office. Will check readings at home and drop them off at the office in two weeks. Will keep follow up in June. Type 2 laith betes mellitus 87783717 E11.9 Taking Metformin BID. Last A1C was slightly elevated and had albuminuri a. Will try to add Farxiga for renal protection if covered by insurance. His last LDL was less than 70. He is currently taking Fish Oil. Will find out when he last saw ophthalmol ogist at follow up. Albuminuria [id number] R8 0.9 Will aggressive ly work on getting his diabetes and blood pressure under better control to see if we can decrease the albumin in his urine. Will try to add Farxiga. Will follow up in three months for a regular appointmen t and will repeat albumin in urine. Normocytic anemia 690344 [id number] D64.9 [id number] MD Bianca Thorne (Adult Med) [address] [place] [phone] 07/14/2024 10:01:31 07/19/2024 16:04:56 Essential hypertension 82247322 I10 Will add Chlorthali done. If he does not respond to that will begin a work up for secondary causes of hypertensi on. He has been hesitant to take a diuretic due to history of abdominal swelling after taking the combinatio n MELINA and diuretic medication . We were never clear on what that was and if it was related to the medication . I advised him to reach out to me if he has anything like that again with this medication . I am not sure that was related to the medication , and I think he may respond well to the addition of a diuretic. He will follow up in two weeks. He will reach out if he has any symptoms or problems. Continue exercising , eating well, and restrictin g salt. Type 2 laith sylwia mellitus 50429147 E11.9 His A1C is similar to last visit. I wanted to start him on Farxiga for renal protection but he couldn't afford it. I still think it is important to lower his glucose for kidney protection , but his blood pressure is a bigger concern at this time. Once his blood pressure is better we will continue to work on his diabetes. Consider a GLP-1 since this also has some renal protection . Discuss further at follow up. Albuminuria [id number] R8 0.9 Aggressive ly work on controllin g blood pressure and diabetes to protect kidney function. Hopefully adding the diuretic will finally get blood pressure under control. Then will repeat kidney function. If it does not I will check a renal ultrasound along with additional test for secondary hypertensi on. [id number] PARIS Montanez (Adult Med) [address] [place] [phone] 07/28/2024 09:51:41 08/06/2024 09:54:16 Health Concerns Section Related Observation LastModified by Organization Detai ls LastModified Time None Recorded Concern Status LastModified by Organization Details LastModified Time None Recorded Advance Directives Directive N: Payers Encounter Date Sequence Insurance Name Policy Number Policy Hodges Covered Member ID Hodges Member ID Guarantor Name 03/30/2024 1 [facility] DUAL OPTIONS (MEDICARE - MEDICAID REPLACEMENT HMO) [id number] Darrell W Abiodun [id number] Pondera Pryor 04/13/2024 1 [facility] - DUAL OPTIONS (MEDICARE - MEDICAID REPLACEMENT HMO) [id number] Pondera W Pryor [id number] Pondera Abiodun 04/27/2024 1 [facility] [place] - DUAL OPTIONS (MEDICARE - MEDICAID REPLACEMENT HMO) [id number] Pondera W Abiodun [id number] Pondera Pryor 07/14/2024 1 [facility] [place] - DUAL OPTIONS (MEDICARE - MEDICAID REPLACEMENT HMO) [id number] Pondera W Abiodun [id number] Pondera Abiodun 07/28/2024 1 [facility] [place] - DUAL OPTIONS (MEDICARE - MEDICAID REPLACEMENT HMO) [id number] Pondera W Abiodun [id number] Pondera Abiodun Notes Date Note Type Note Provider Name and Address Organization Details Recorded Time 03/30/2024 text/html follow up, has been checking blood pressures at home twice a day, they have all been elevated, he brought in his readings, systolics have been 150-160 and diastolics have been in the 90's, he has been feeling good because he started an exercise program, was unable to meat pickler the Farxiga because the pharmacy didn't have it, no headache, no chest pain, no heart disease, no asthma, was unable to tolerate a diuretic in the past but has not been on other blood pressure medications Karina Herrera MD Attn: Accounting[address] [place], [address], [place] 03/31/2024 09:03:37 04/13/2024 text/html follow up, still getting elevated blood pressures at home similar to what we got in the office today, no complaints, no chest pain, no shortness of breath, no headaches, concerned about trying Farxiga because doesn't like water, drinks about two bottles a day, Karina Herrera MD Attn: Accounting[address] [place], [address], [place] 04/13/2024 17:58:18 04/27/2024 text/html Amlodipine makes him feel weird, thirty minutes after taking it feels different, no nausea, no chest pain, skin feels weird, skin crawling, no swelling, Karina Herrera MD Attn: Accounting[address] [place], [address], [place] 04/27/2024 10:58:07 07/14/2024 text/html follow up, very frustrated, feels like he is doing everything he is supposed to but his blood pressure continues to be elevated, it is elevated at home as well, for one week it was around 180 over 130, he was having some headaches at that time, no further headaches, he was out shoveling snow and had no chest pain, no shortness of breath, no visual changes, no hematuria, he watches salt intake, tries to exercise daily, watches diet, did not meat pickler the new diabetic medicine because it was too expensive, Karina Herrera MD Attn: Accounting[address] [facility], [place], [address], [facility] - [place] 07/14/2024 13:49:44
--- OUTSIDE RECORDS SUMMARY | 2024-08-30 03:05 | XMS_ITS | CONTINUITY OF CARE DOCUMENT ---
Author Name curtis acevedo Address Unknown Organization [facility] Address [address] [place] [address] Phone [phone] Care Team Providers Care Ops Manager Name Role Phone Chuy Dhillon MD Unavailable AMBER SERRA Unavailable AMBER SERRA Unavailable [phone] PROBLEMS Condition Status Date Provider Notes Cardiovascular [...] In-person encounter Office Visit Chuy Dhillon MD [place] [facility] Cardiovascular screeningDiabetes mellitus type IIHTN essentialAnxietyObesityFoot [...] 6 Jaelyn Gil VITAMIN D3 1.25 MG (03242 UT) ORAL TABLET active take one tablet [...] #60, 30 days supply, Prescribed by AMBER OGDNE, Filled 10/04/2020 ESCITALOPRAM OXALATE 20 MG ORAL [...] Jaelyn Gil smoking status Former smoker Jaelyn Spicerby INSURANCE PROVIDERS Payer name Policy type / Coverage type [place] [employer] Medicaid 0 [id number] [place] MED[place] Medicare [id number] TREATMENT PLAN Date Name Performer Cardiology Chuy [...]
[2024-08-30 03:26] LABS: Add Urine Microscopic? YES; Appearance Urine Clear (Clear); Bacteria Urine None Seen /hpf; Bilirubin Urine Negative (Negative); Blood Urine 1+ (Negative); Color Urine Yellow (Yellow); Glucose Urine UA 3+ mg/dL (Negative); Ketones Urine 1+ mg/dL (Negative); Leukocyte Esterase Ur Negative LEU/UL (Negative); Nitrate Urine Negative (Negative); Non Pathogenic Casts 0-2; Protein Urine 2+ mg/dL (Negative); Specific Grav Ur 1.021 (1.001-1.035); Squamous Epithelial Cell Urine None Seen /hpf (Few); WBC Urine 0-5 /hpf (0-3); pH Urine 5.5 (5.0-9.0)
[2024-08-30] MEDS: SODIUM CHLORIDE 0.9% IV 1,000 ML 999 ML IV CONT (03:28)
[2024-08-30] MEDS: MORPHINE SULFATE (*CRX) 4 MG/ML INJ IV PUSH ×2 (03:29→04:44)
--- NOTE | 2024-08-30 04:00 | ED_ITS ---
HPI - General Adult General Chief complaint: Nausea/Vomiting/Diarrhea <Jim Montes MD - Last Filed: 08/30/24 06:32> Stated complaint: N/V/D <Jim Montes MD - Last Filed: 08/30/24 06:32> Time Seen by Provider: 08/30/24 02:52 <Jim Montes MD - Last Filed: 08/30/24 06:32> History of Present Illness HPI narrative: Patient is 61-year-old gentleman presents emergency department chief complaint of nausea vomiting the last 2 hours the patient states that his abdomen is distended reports he has history of an umbilical hernia patient states that is very uncomfortable and not able to get comfortable. <Jim Montes MD - Last Filed: 08/30/24 06:32> Related Data Home medications: Home Medications ?Medication ?Instructions ?Recorded ?Confirmed ?Last Taken ?Type chlorthalidone 25 mg tablet mg 08/30/24 08/29/24 History ergocalciferol (vitamin D2) 1,250 08/30/24 08/29/24 History mcg (50,000 unit) capsule lisinopril 20 mg tablet mg 08/30/24 08/29/24 History metformin 500 mg tablet mg 08/30/24 08/29/24 History <Jim Montes MD - Last Filed: 08/30/24 06:32> Allergies/adverse reactions: Allergies Allergy/AdvReac Type Severity Reaction Status Date / Time Penicillins Allergy Intermediate Unknown Verified 08/30/24 07:46 <Jim Montes MD - Last Filed: 08/30/24 06:32> Review of Systems 2 Review of Systems: A 10 system review of systems was completed on the patient and is negative except for what is stated in the HPI. Nursing and ancillary documentation was reviewed. <Jim Montes MD - Last Filed: 08/30/24 06:32> Exam 2 Narrative: GENERAL: Well-appearing, well-nourished, and in no acute distress. HEAD: Normocephalic, atraumatic. EYES: PERRLA and EOMI. ENT: Nares clear, no rhinorrhea or epistaxis. Mucous membranes moist. NECK: Supple. CHEST: Clear to auscultation. No respiratory distress. HEART: Regular rate and rhythm. No murmur heard. Normal peripheral pulses. ABDOMEN: Soft, nontender, diffusely tender to palpation, normal active bowel sounds. There is a reducible umbilical hernia present EXTREMITIES: Normal range of motion. No edema. SKIN: Warm, dry, no rash. NEURO: No focal deficits. Alert and oriented x3. PSYCH: Normal mood and affect. <Jim Montes MD - Last Filed: 08/30/24 06:32> Course Vital Signs Vital signs: Vital Signs Temperature 97.5 F L 08/30/24 00:49 Pulse Rate 69 08/30/24 00:49 Respiratory Rate 17 08/30/24 00:49 Blood Pressure 186/83 H 08/30/24 00:49 Pulse Oximetry 99 08/30/24 00:49 Oxygen Delivery Room Air 08/30/24 00:49 Temperature 97.6 F 08/30/24 07:44 Pulse Rate 83 08/30/24 07:44 Respiratory Rate 19 08/30/24 07:44 Blood Pressure 171/92 H 08/30/24 07:44 Pulse Oximetry 96 08/30/24 07:44 Oxygen Delivery Room Air 08/30/24 00:49 <Jim Montes MD - Last Filed: 08/30/24 06:32> Vital Signs Temperature 97.5 F L 08/30/24 00:49 Pulse Rate 69 08/30/24 00:49 Respiratory Rate 17 08/30/24 00:49 Blood Pressure 186/83 H 08/30/24 00:49 Pulse Oximetry 99 08/30/24 00:49 Oxygen Delivery Room Air 08/30/24 00:49 Temperature 97.6 F 08/30/24 07:44 Pulse Rate 83 08/30/24 07:44 Respiratory Rate 19 08/30/24 07:44 Blood Pressure 171/92 H 08/30/24 07:44 Pulse Oximetry 96 08/30/24 07:44 Oxygen Delivery Room Air 08/30/24 00:49 <Citlali Gan III, DO - Last Filed: 08/30/24 17:36> Medical Decision Making MDM Narrative Medical decision making narrative: Differential diagnosis includes bowel obstruction, intra-abdominal infection, pancreatitis, diverticulitis, colitis Laboratory studies were obtained on the patient showed white count of 14.7 electrolytes are within normal limits bilirubin was normal lipase was 376 CT scan of the abdomen pelvis showed Dominant 20.0 x 9.6 x 15.9 cm lobulated somewhat heterogeneous mass centered in the central mesentery, extensively abutting the duodenum and pancreatic head. This is compatible with neoplasm, precise etiology unclear. GIST is a potential consideration. Tissue sampling recommended to establish histologic diagnosis The case was discussed with surgery who recommended the patient be transferred to a facility that can potentially perform a Whipple procedure on the patient < Jim Montes MD - Last Filed: 08/30/24 06:32> Differential diagnosis includes bowel obstruction, intra-abdominal infection, pancreatitis, diverticulitis, colitis Laboratory studies were obtained on the patient showed white count of 14.7 electrolytes are within normal limits bilirubin was normal lipase was 376 CT scan of the abdomen pelvis showed Dominant 20.0 x 9.6 x 15.9 cm lobulated somewhat heterogeneous mass centered in the central mesentery, extensively abutting the duodenum and pancreatic head. This is compatible with neoplasm, precise etiology unclear. GIST is a potential consideration. Tissue sampling recommended to establish histologic diagnosis The case was discussed with surgery who recommended the patient be transferred to a facility that can potentially perform a Whipple procedure on the patient Elvia assumed care at [address] Montes. He had talked with [facility] Dr Dominguez colorectal surgery who wanted to discuss with surgical Oncology. Dr Tran recommended ER to Er transfer. Dr Thompson accept to [facility]. <Citlali Gan III, DO - Last Filed: 08/30/24 17:36> Vital Signs Vital Signs: Vital Signs Temperature 97.5 F L 08/30/24 00:49 Pulse Rate 69 08/30/24 00:49 Respiratory Rate 17 08/30/24 00:49 Blood Pressure 186/83 H 08/30/24 00:49 Pulse Oximetry 99 08/30/24 00:49 Oxygen Delivery Room Air 08/30/24 00:49 Temperature 97.6 F 08/30/24 07:44 Pulse Rate 83 08/30/24 07:44 Respiratory Rate 19 08/30/24 07:44 Blood Pressure 171/92 H 08/30/24 07:44 Pulse Oximetry 96 08/30/24 07:44 Oxygen Delivery Room Air 08/30/24 00:49 <Jim Montes MD - Last Filed: 08/30/24 06:32> Vital Signs Temperature 97.5 F L 08/30/24 00:49 Pulse Rate 69 08/30/24 00:49 Respiratory Rate 17 08/30/24 00:49 Blood Pressure 186/83 H 08/30/24 00:49 Pulse Oximetry 99 08/30/24 00:49 Oxygen Delivery Room Air 08/30/24 00:49 Temperature 97.6 F 08/30/24 07:44 Pulse Rate 83 08/30/24 07:44 Respiratory Rate 19 08/30/24 07:44 Blood Pressure 171/92 H 08/30/24 07:44 Pulse Oximetry 96 08/30/24 07:44 Oxygen Delivery Room Air 08/30/24 00:49 <Citlali Gan III, DO - Last Filed: 08/30/24 17:36> Lab Data Result diagrams: 08/30/24 01:10 08/30/24 01:10 <Jim Montes MD - Last Filed: 08/30/24 06:32> Labs: Lab Results 08/30/24 08/30/24 Range/Units 01:10 03:12 WBC 14.7 H (4.5-10.0) K/mm3 RBC 5.00 (4.6-6.20) M/mm3 Hgb 13.4 L (14.0-18.0) g/dL Hct 40.6 L (42.0-52.0) % MCV 81.2 (80-100) fl MCH 26.8 (26-34) pg MCHC 33.0 (32-36) g/dl RDW 13.9 (11.5-14.5) % Plt Count 388 H (150-375) k/mm3 MPV 9.1 (7.4-10.4) fl Immature Gran % (Auto) 0.5 (0-0.5) % Neut % (Auto) 81.5 H (45.5-73.1) % Lymph % (Auto) 10.3 L (18.3-44.2) % Forest % (Auto) 6.4 (2.6-8.5) % Eos % (Auto) 0.9 (0-4.4) % Baso % (Auto) 0.4 (0.2-1.2) % Lymph # (Auto) 1.51 (0.9-3.2) K/mm3 Forest # (Auto) 0.9 H (0.1-0.6) K/mm3 Eos # (Auto) 0.1 (0-0.3) K/mm3 Baso # (Auto) 0.1 (0.0-0.1) K/mm3 Abs Immat Gran (auto) 0.08 H (0.00-0.031) K/mm3 Absolute Neuts (auto) 12.0 H (1.3-6.7) K/mm3 Absolute Nucleated RBC 0.000 (0.0-0.012) K/mm3 Nucleated RBC % 0.0 (0.0-0.2) % Sodium 137 (137-145) mmol/L Potassium 3.5 (3.4-5.0) mmol/L Chloride 100 (98-107) mmol/L Carbon Dioxide 25 (22-30) mmol/L Anion Gap 12 (4-12) mmol/L BUN 23 H (9-20) mg/dL Creatinine 1.00 (0.7-1.3) mg/dL Estim Creat Clear Calc 77 ml/min Estimated GFR > 60 (59 - ) Glucose 242 H (65-110) mg/dL Calcium 10.3 H (8.4-10.2) mg/dL Total Bilirubin 0.7 (0.2-1.3) mg/dL AST 32 (17-59) U/L ALT 18 (6-50) U/L Alkaline Phosphatase 146 H (38-126) U/L Total Protein 7.0 (6.3-8.2) g/dL Albumin 4.0 (3.5-5.1) g/dL Lipase 376 H (23-300) U/L Urine Color Yellow (Yellow) Urine Appearance Clear (Clear) Urine pH 5.5 (5.0-9.0) Ur Specific Hawthorne 1.021 (1.001-1.035) Urine Protein 2+ H (Negative) mg/dL Urine Glucose (UA) 3+ H (Negative) mg/dL Urine Ketones 1+ H (Negative) mg/dL Ur Blood (Man) 1+ H (Negative) Urine Nitrate Negative (Negative) Urine Bilirubin Negative (Negative) Urine Urobilinogen 1.0 (<2.0) mg/dL Leukocyte Esterase Rfl Negative (Negative) LOBITO/UL Urine RBC 6-10 H (0-2) /hpf Urine WBC 0-5 (0-3) /hpf Ur Squamous Epith Cells None seen (Few) /hpf Urine Bacteria None seen /hpf Urine Casts 0-2 Influenza A (RT-PCR) Negative (Negative) Influenza B (RT-PCR) Negative (Negative) RSV (RT-PCR) Negative (Negative) SARS-CoV-2 RNA (RT-PCR) Negative (Negative) <Jim Montes MD - Last Filed: 08/30/24 06:32> Lab Results 08/30/24 08/30/24 Range/Units 01:10 03:12 WBC 14.7 H (4.5-10.0) K/mm3 RBC 5.00 (4.6-6.20) M/mm3 Hgb 13.4 L (14.0-18.0) g/dL Hct 40.6 L (42.0-52.0) % MCV 81.2 (80-100) fl MCH 26.8 (26-34) pg MCHC 33.0 (32-36) g/dl RDW 13.9 (11.5-14.5) % Plt Count 388 H (150-375) k/mm3 MPV 9.1 (7.4-10.4) fl Immature Gran % (Auto) 0.5 (0-0.5) % Neut % (Auto) 81.5 H (45.5-73.1) % Lymph % (Auto) 10.3 L (18.3-44.2) % Forest % (Auto) 6.4 (2.6-8.5) % Eos % (Auto) 0.9 (0-4.4) % Baso % (Auto) 0.4 (0.2-1.2) % Lymph # (Auto) 1.51 (0.9-3.2) K/mm3 Forest # (Auto) 0.9 H (0.1-0.6) K/mm3 Eos # (Auto) 0.1 (0-0.3) K/mm3 Baso # (Auto) 0.1 (0.0-0.1) K/mm3 Abs Immat Gran (auto) 0.08 H (0.00-0.031) K/mm3 Absolute Neuts (auto) 12.0 H (1.3-6.7) K/mm3 Absolute Nucleated RBC 0.000 (0.0-0.012) K/mm3 Nucleated RBC % 0.0 (0.0-0.2) % Sodium 137 (137-145) mmol/L Potassium 3.5 (3.4-5.0) mmol/L Chloride 100 (98-107) mmol/L Carbon Dioxide 25 (22-30) mmol/L Anion Gap 12 (4-12) mmol/L BUN 23 H (9-20) mg/dL Creatinine 1.00 (0.7-1.3) mg/dL Estim Creat Clear Calc 77 ml/min Estimated GFR > 60 (59 - ) Glucose 242 H (65-110) mg/dL Calcium 10.3 H (8.4-10.2) mg/dL Total Bilirubin 0.7 (0.2-1.3) mg/dL AST 32 (17-59) U/L ALT 18 (6-50) U/L Alkaline Phosphatase 146 H (38-126) U/L Total Protein 7.0 (6.3-8.2) g/dL Albumin 4.0 (3.5-5.1) g/dL Lipase 376 H (23-300) U/L Urine Color Yellow (Yellow) Urine Appearance Clear (Clear) Urine pH 5.5 (5.0-9.0) Ur Specific [place] 1.021 (1.001-1.035) Urine Protein 2+ H (Negative) mg/dL Urine Glucose (UA) 3+ H (Negative) mg/dL Urine Ketones 1+ H (Negative) mg/dL Ur Blood (Man) 1+ H (Negative) Urine Nitrate Negative (Negative) Urine Bilirubin Negative (Negative) Urine Urobilinogen 1.0 (<2.0) mg/dL Leukocyte Esterase Rfl Negative (Negative) LOBITO/UL Urine RBC 6-10 H (0-2) /hpf Urine WBC 0-5 (0-3) /hpf Ur Squamous Epith Cells None seen (Few) /hpf Urine Bacteria None seen /hpf Urine Casts 0-2 Influenza A (RT-PCR) Negative (Negative) Influenza B (RT-PCR) Negative (Negative) RSV (RT-PCR) Negative (Negative) SARS-CoV-2 RNA (RT-PCR) Negative (Negative) <Citlali Gan III, DO - Last Filed: 08/30/24 17:36> Discharge Plan Discharge Clinical Impression: Abdominal pain, Nausea & vomiting, Abdominal mass <Jim Montes MD - Last Filed: 08/30/24 06:32> Patient Disposition: Acute Care Hospital <Jim Montes MD - Last Filed: 08/30/24 06:32> Condition: Stable <Jim Montes MD - Last Filed: 08/30/24 06:32> Patient Language: Polish <Jim Montes MD - Last Filed: 08/30/24 06:32> Prescriptions: No Action metformin 500 mg tablet lisinopril 20 mg tablet chlorthalidone 25 mg tablet ergocalciferol (vitamin D2) 1,250 mcg (50,000 unit) capsule <Jim Montes MD - Last Filed: 08/30/24 06:32> Follow-up/Referrals: PHYSICIAN,COMPUTATIONAL CHEMIST [Non-Staff] - <Jim Montes MD - Last Filed: 08/30/24 06:32> Time of Disposition: 06:32 <Jim Montes MD - Last Filed: 08/30/24 06:32> 06:32 <Citlali Gan III, DO - Last Filed: 08/30/24 17:36>
[2024-08-30 07:44] VITALS: BP 171/92; PULSE 83; RESP 19; TEMP 36.4; O2SAT 96
[2024-08-30] MEDS: HYDROmorphone HCL INJ (*CRX) 1 MG/ML SYR IV PUSH (07:45)
== END 2024-08-30 08:30 | disposition short-term general hospital (02) ==
PROVIDERS: Emergency Provider Emergency Medicine
DX: R11.2 Nausea with vomiting, unspecified (principal); R10.9 Unspecified abdominal pain; R19.00 Intra-abdominal and pelvic swelling, mass and lump, unspecified site; Z20.822 Contact with and (suspected) exposure to COVID-19
CPT/HCPCS: 36415; 74177; 80053; 81001; 83690; 85025; 87637; 96361; 96374; 96375; 96376; 99285; J1171; J2270; J2405; J7030; Q9967